=== PATIENT | male | born 1985 | race Hispanic/Latino ===

== ENCOUNTER 2021-03-15 23:11 | Emergency (ER) | payer SELFPAY ==
[2021-03-16] MEDS ORDERED: HYDROCODONE/APAP 7.5/325 MG TAB ONE (01:10)
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
[2021-03-16 02:30] VITALS: TEMP 97.8
[2021-03-16 02:31] VITALS: BP 126/84; O2SAT 99
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
== END 2021-03-16 02:25 | disposition home or self-care (01) ==
LOC: ER 23:11
DX: S29.012A Strain of muscle and tendon of back wall of thorax, initial encounter (principal); S39.012A Strain of muscle, fascia and tendon of lower back, initial encounter; V49.50XA Passenger injured in collision with unspecified motor vehicles in traffic accident, initial encounter
CPT/HCPCS: 71250; 74176; 99283